=== PATIENT | female | born 1960 | race Hispanic/Latino ===

== ENCOUNTER 2018-03-03 06:25 | Day surgery (SDC) | payer BC ==
[2018-03-02 08:16] VITALS: BMI 23.0
[2018-03-03 07:05] LABS: BASO # 0.1 K/uL (0.0-0.2); BASO % 1.3 % (0.0-2.0); EOS # 0.4 K/uL (0.0-0.7); EOS % 6.3 % (0.0-4.0); LYMPH # 2.6 K/uL (1.0-4.3); MEAN CELL VOLUME 86.9 fL (81.0-99.0); MEAN CORPUSCULAR HEMOGLOBIN 29.4 pg (27.0-31.0); MEAN CORPUSCULAR HGB CONC 33.8 g/dL (33.0-37.0); MEAN PLATELET VOLUME 8.2 fL (7.2-11.7); MONO # 0.7 K/uL (0.0-0.8); MONO % 11.5 % (0.0-10.0); NEUT % 34.9 % (50.0-75.0); NRBC % 0.1 % (0.0-2.0); RBC 4.76 Mil/uL (3.80-5.20); RED CELL DISTRIBUTION WIDTH 12.5 % (11.5-14.5); WHITE BLOOD COUNT 5.7 K/uL (4.8-10.8)
[2018-03-03 07:20] LABS: BLOOD UREA NITROGEN 12 mg/dL (7-17); CALCIUM 9.2 mg/dl (8.6-10.4); GFR AFRICAN-AMERICAN > 60; GFR NON-AFRICAN AMERICAN > 60
[2018-03-03] MEDS ORDERED: Carbachol 0.01% IO ONE (07:40)
[2018-03-03] MEDS ORDERED: Tetracaine 0.5% Ophth (OR ONLY) ONE (07:40)
[2018-03-03] MEDS ORDERED: Povidone Iodine Ophthalmic 5% Soln ONE (07:40)
[2018-03-03] MEDS ORDERED: Lidocaine Hydrochloride 5 ML INJ ONE (07:40)
[2018-03-03] MEDS ORDERED: Chondroitin/Hyaluronate Opth Syringe KIT (0.55 ml-0.5 ml) IO ONE (07:41)
[2018-03-03] MEDS ORDERED: Hyaluronidase Human, Recombi 150 U/ML VIAL ONE (07:41)
[2018-03-03] MEDS ORDERED: Tobramycin/Dexamethasone OPHT OINT ONE (07:42)
[2018-03-03] MEDS ORDERED: Tobramycin/Dexamethasone (Tobradex) Opth Sol (2.5 ml) ONE (07:42)
[2018-03-03] MEDS ORDERED: Cyclopentolate 1% Opth (2 ml) OS SCH (08:00)
[2018-03-03] MEDS ORDERED: Flurbiprofen 0.03% Opht SOLN OS SCH (08:00)
[2018-03-03] MEDS ORDERED: Tropicamide 1% Opht SOLUTION OS SCH (08:00)
[2018-03-03] MEDS ORDERED: Phenylephrine 2.5% Opht Soln OS SCH (08:00)
[2018-03-03] MEDS ORDERED: Ciprofloxacin 0.3% OPTH SOLN OS SCH (08:00)
[2018-03-03] MEDS ORDERED: Lactated Ringer's 1,000 ML IV ONE (08:26)
[2018-03-03] MEDS ORDERED: Propofol 10 mg/ml Inj (20 ML) ONE (09:08)
[2018-03-03 11:42] VITALS: O2SAT 100
[2018-03-03 11:46] VITALS: BP 122/70; PULSE 82; RESP 18; TEMP 97.5
--- NOTE | 2018-03-04 19:22 | CARD ---
APPROVED REPORT EKG Measurement Heart [id number] ID [id number] <Conclusion> Normal sinus rhythm Possible Anteroseptal infarct, age undetermined Abnormal ECG
--- NOTE | 2018-03-06 06:19 | OP ---
PROCEDURE DATE: 03/03/2018 PREOPERATIVE DIAGNOSIS: CATARACT, LEFT EYE. POSTOPERATIVE DIAGNOSIS: CATARACT, LEFT EYE. OPERATIVE PROCEDURE: CATARACT EXTRACTION WITH IMPLANT, LEFT EYE. ANESTHESIA TYPE: Local, standby. COMPLICATIONS: None. PROCEDURE: Local anesthesia was achieved using a mixture of 1% lidocaine and Amphadase. The patient was then prepped and draped in the usual sterile fashion for ophthalmic surgery. Betadine drops were placed into the eye. A lid speculum was used and a sideport incision was made using a 15 degree blade. Viscoelastic was used to fill the anterior chamber and a 2.7 millimeter slit blade was used to create a surgical opening. Additional viscoelastic was placed into the eye and a capsulorrhexis was performed. Hydrodissection and delineation were then carried out. Phacoemulsification of the nucleus was performed with ease and cortical cleanup was achieved without difficulty. The capsular bag was refilled using viscoelastic and a posterior chamber lens was inserted through the existing wound and placed into the capsular bag and easily centered. All viscoelastic was then aspirated from the eye and Miochol was instilled for good symmetric pupillary constriction. The sideport wound was hydrated as necessary and a good watertight closure was observed at the conclusion of the case. A TobraDex soaked collagen shield was then placed over the eye. The lid speculum was removed. TobraDex ointment was placed onto the eye and a patch and shield were placed. The patient tolerated the procedure well. Nate Chester MD
== END 2018-03-03 10:55 | disposition home or self-care (01) ==
LOC: C.SDS 06:25
PROVIDERS: ATTEND Ophthalmology
DX: H26.9 Unspecified cataract (principal)
CPT/HCPCS: 36415; 66984; 80048; 85025; 93005; J1885; J2704; J3470; J7120; V2632